=== PATIENT | female | born 1980 | race Caucasian/White ===

== ENCOUNTER 2018-07-02 18:00 | Emergency (ER) | payer MEDICAID ==
[~2018-07-02] VITALS: Ht 167.6 cm; Wt 85.0 kg
[2018-07-02 19:59] LABS: BASOPHILS % (AUTO) 1.8 % (0.0-2.0); EOSINOPHILS % (AUTO) 4.2 % (1.0-6.0); HEMATOCRIT 39.4 % (36-46); HEMOGLOBIN 13.3 g/dL (12.0-16.0); LYMPHOCYTES # (AUTO) 2.2 K/uL (1.0-4.8); LYMPHOCYTES % (AUTO) 30.5 % (22.0-44.0); MEAN CORPUSCULAR HEMOGLOBIN 30.8 pg (26.0-34.0); MEAN CORPUSCULAR HGB CONC 33.7 G/dL (31.0-37.0); MEAN CORPUSCULAR VOLUME 92 fL (80-100); MONOCYTES # (AUTO) 0.5 K/uL (0.1-1.0); MONOCYTES % (AUTO) 7.4 % (2.0-9.0); NEUTROPHILS # (AUTO) 4.1 K/uL (1.8-7.7); NEUTROPHILS % (AUTO) 56.1 % (40.0-70.0); PLATELET COUNT (AUTO) 239 K/uL (150-450); RED CELL DISTRIBUTION WIDTH 13.5 % (11.5-14.5)
[2018-07-02 20:10] LABS: ANION GAP 5 mmol/L (8-16); CARBON DIOXIDE 29 mmol/L (22-29); CHLORIDE 108 mmol/L (98-107); CREATININE 0.81 mg/dL (0.60-1.30); GLOMERULAR FILTR. RATE CALC > 60 mL/min (>60); GLUCOSE,RANDOM 102 mg/dL (70-110); POTASSIUM 4.2 mmol/L (3.5-5.1); SODIUM SERUM 142 mmol/L (136-145); UREA NITROGEN, BLOOD 22 mg/dL (7-18)
[2018-07-02 20:21] LABS: ALANINE AMINOTRANSFERASE 22 U/L (12-78); ALBUMIN 3.4 g/dL (3.4-5.0); ALKALINE PHOSPHATASE 64 U/L (46-116); ASPARTATE AMINOTRANSFERASE 17 U/L (15-37); BILIRUBIN,TOTAL 0.2 mg/dL (0.1-1.0); HCG,QUANTITATIVE < 1 mIU/mL (0-6); TOTAL PROTEIN, SERUM 6.5 g/dL (6.4-8.2)
[2018-07-02 20:40] VITALS: BP 131/74
[2018-07-02] MEDS ORDERED: MECLIZINE HCL 25 MG TABLET PO ONE (20:45)
[2018-07-02] MEDS ORDERED: DIAZEPAM 5 MG TABLET PO ONE (20:45)
[2018-07-02] MEDS ORDERED: ONDANSETRON HCL 4 MG TABLET PO ONE (20:45)
== END 2018-07-02 21:12 | disposition home or self-care (01) ==
LOC: EMS 18:01
DX: H81.11 Benign paroxysmal vertigo, right ear (principal); F17.210 Nicotine dependence, cigarettes, uncomplicated
CPT/HCPCS: 36415; 80053; 84702; 85025; 99284; Q0162

== ENCOUNTER 2019-03-06 00:13 | Emergency (ER) | payer MEDICAID | END 2019-03-06 03:00 | disposition left against medical advice (07) | LOC: EMS 00:13 | DX: Z00.8 Encounter for other general examination (principal); Z53.21 Procedure and treatment not carried out due to patient leaving prior to being seen by health care provider ==

== ENCOUNTER 2019-10-20 19:35 | Emergency (ER) | payer MEDICAID ==
[~2019-10-20] VITALS: Ht 167.6 cm; Wt 77.3 kg
[2019-10-20 21:26] VITALS: BP 138/92
[2019-10-20 22:27] LABS: BASOPHILS % (AUTO) 1.1 % (0.0-2.0); EOSINOPHILS % (AUTO) 11.6 % (1.0-6.0); HEMATOCRIT 37.8 % (36-46); HEMOGLOBIN 12.6 g/dL (12.0-16.0); LYMPHOCYTES # (AUTO) 1.7 K/uL (1.0-4.8); LYMPHOCYTES % (AUTO) 27.2 % (22.0-44.0); MEAN CORPUSCULAR HEMOGLOBIN 30.8 pg (26.0-34.0); MEAN CORPUSCULAR HGB CONC 33.4 G/dL (31.0-37.0); MEAN CORPUSCULAR VOLUME 92 fL (80-100); MONOCYTES # (AUTO) 0.5 K/uL (0.1-1.0); MONOCYTES % (AUTO) 8.5 % (2.0-9.0); NEUTROPHILS # (AUTO) 3.3 K/uL (1.8-7.7); NEUTROPHILS % (AUTO) 51.6 % (40.0-70.0); PLATELET COUNT (AUTO) 237 K/uL (150-450); RED CELL DISTRIBUTION WIDTH 13.6 % (11.5-14.5)
[2019-10-20 22:33] LABS: ANION GAP 7 mmol/L (8-16); CALCIUM, TOTAL 9.3 mg/dL (8.8-10.5); CARBON DIOXIDE 28 mmol/L (22-29); CHLORIDE 106 mmol/L (98-107); CREATININE 0.62 mg/dL (0.60-1.30); GLOMERULAR FILTR. RATE CALC > 60 mL/min (>60); GLUCOSE,RANDOM 102 mg/dL (70-110); POTASSIUM 3.9 mmol/L (3.5-5.1); SODIUM SERUM 141 mmol/L (136-145); UREA NITROGEN, BLOOD 16 mg/dL (7-18)
[2019-10-20 22:40] LABS: ALANINE AMINOTRANSFERASE 21 U/L (12-78); ALBUMIN 3.7 g/dL (3.4-5.0); ALKALINE PHOSPHATASE 58 U/L (46-116); ASPARTATE AMINOTRANSFERASE 14 U/L (15-37); BILIRUBIN,TOTAL 0.2 mg/dL (0.1-1.0); TOTAL PROTEIN, SERUM 6.9 g/dL (6.4-8.2)
[2019-10-20] MEDS ORDERED: ACETAMINOPHEN 325 MG TABLET PO ONE (23:00)
== END 2019-10-20 23:00 | disposition left against medical advice (07) ==
LOC: EMS 19:36
DX: F32.9 Major depressive disorder, single episode, unspecified (principal); F20.9 Schizophrenia, unspecified; J45.909 Unspecified asthma, uncomplicated; F17.210 Nicotine dependence, cigarettes, uncomplicated; F12.10 Cannabis abuse, uncomplicated
CPT/HCPCS: 80053; 85025; 99283; G0480

== ENCOUNTER 2020-03-30 20:01 | Inpatient (IN) | payer MEDICAID ==
[~2020-03-30] VITALS: Ht 170.2 cm; Wt 75.2 kg
[2020-03-30] MEDS ORDERED: HydrOXYzine PAMOATE 50 MG CAPSULE PO PRN (20:30)
[2020-03-30] MEDS ORDERED: OLANZapine 5 MG RAPDIS TABLET PO PRN (20:30)
[2020-03-30] MEDS ORDERED: LOPERAMIDE HCL 2 MG CAPSULE PO PRN (20:30)
[2020-03-30] MEDS ORDERED: PROMETHAZINE HCL 25 MG TABLET PO PRN (20:30)
[2020-03-30] MEDS ORDERED: GuaiFENesin/D-METHORPHAN [SUGAR-FREE] 200-20MG/10 ML SYRUP UDCUP PO PRN (20:30)
[2020-03-30] MEDS ORDERED: MAGNESIUM HYDROXIDE SUSPENSION 30 ML UDCUP PO PRN (20:30)
[2020-03-30] MEDS ORDERED: TUBERCULIN, PURIFIED PROTEIN DERIVATIVE 5 TU/0.1 ML SYRINGE ID ONE (20:30)
[2020-03-30] MEDS ORDERED: ACETAMINOPHEN 325 MG TABLET PO PRN (20:30)
[2020-03-30] MEDS ORDERED: PNEUMOCOCCAL VACCINE POLYVALENT 0.5 ML VIAL [PPSV23] IM ONE (20:30)
[2020-03-30] MEDS ORDERED: MAG HYDROX/AL HYDROX/SIMETH ES 30 ML SUSPENSION UDCUP PO PRN (20:30)
[2020-03-30] MEDS ORDERED: ZOLPIDEM TARTRATE 10 MG TABLET PO PRN (20:30)
[2020-03-30] MEDS ORDERED: OLANZapine 5 MG RAPDIS TABLET PO SCH (21:00)
[2020-03-30] MEDS: THIAMINE 100 MG TABLET PO SCH (21:38)
[2020-03-30 22:02] VITALS: BP 135/87
[2020-03-31 05:02] VITALS: BP 100/68
[2020-03-31 08:21] VITALS: BP 110/66
[2020-03-31] MEDS: FLUoxetine HCL 20 MG CAPSULE PO SCH (08:34)
[2020-03-31] MEDS: NALTREXONE HCL 50 MG TABLET PO SCH (08:34)
[2020-03-31] MEDS: MULTIVITAMINS WITH MINERALS, THERAPEUTIC TABLET PO SCH (08:34)
[2020-03-31] MEDS: THIAMINE 100 MG TABLET PO SCH ×2 (08:34→17:12)
[2020-03-31] MEDS: FOLIC ACID 1 MG TABLET PO SCH (08:34)
[2020-03-31] MEDS: LORazepam 2 MG TABLET PO PRN ×2 (08:37→17:12)
[2020-03-31 16:05] VITALS: BP 116/68
[2020-03-31] MEDS: OLANZapine 10 MG RAPDIS TABLET PO SCH (20:22)
[2020-03-31] MEDS: DIVALPROEX SODIUM 500 MG ER TABLET PO SCH (20:22)
[2020-04-01 00:45] VITALS: BP_SYST 109; BP_SYST 128; BP_DIAS 66; BP_DIAS 88
[2020-04-01 08:34] LABS: HEMOGLOBIN A1C 5.4 % (3.8-5.6)
[2020-04-01 08:54] LABS: FREE T4 (FREE THYROXINE) 1.35 ng/dL (0.76-1.46); THYROID STIMULATING HORMONE 0.35 uIU/mL (0.36-3.74)
[2020-04-01] MEDS: MULTIVITAMINS WITH MINERALS, THERAPEUTIC TABLET PO SCH (09:47)
[2020-04-01] MEDS: THIAMINE 100 MG TABLET PO SCH ×2 (09:47→16:49)
[2020-04-01] MEDS: NALTREXONE HCL 50 MG TABLET PO SCH (09:47)
[2020-04-01] MEDS: FLUoxetine HCL 20 MG CAPSULE PO SCH (09:47)
[2020-04-01] MEDS: LORazepam 2 MG TABLET PO PRN (09:48)
[2020-04-01] MEDS: FOLIC ACID 1 MG TABLET PO SCH (10:09)
[2020-04-01 16:13] VITALS: BP 114/60
[2020-04-01] MEDS: OLANZapine 10 MG RAPDIS TABLET PO SCH (20:12)
[2020-04-01] MEDS: DIVALPROEX SODIUM 500 MG ER TABLET PO SCH (20:12)
[2020-04-02 00:12] VITALS: BP 110/74
[2020-04-02 08:09] VITALS: BP 118/78
[2020-04-02] MEDS: FOLIC ACID 1 MG TABLET PO SCH (08:48)
[2020-04-02] MEDS: FLUoxetine HCL 20 MG CAPSULE PO SCH (08:48)
[2020-04-02] MEDS: MULTIVITAMINS WITH MINERALS, THERAPEUTIC TABLET PO SCH (08:48)
[2020-04-02] MEDS: THIAMINE 100 MG TABLET PO SCH ×2 (08:48→16:30)
[2020-04-02] MEDS: NALTREXONE HCL 50 MG TABLET PO SCH (08:48)
[2020-04-02] MEDS: LORazepam 2 MG TABLET PO PRN (13:39)
[2020-04-02 16:15] VITALS: BP 121/85
[2020-04-02] MEDS: OLANZapine 10 MG RAPDIS TABLET PO SCH (20:30)
[2020-04-02] MEDS: DIVALPROEX SODIUM 500 MG ER TABLET PO SCH (20:30)
[2020-04-03 00:49] VITALS: BP 117/82
[2020-04-03 08:12] VITALS: BP 122/69
[2020-04-03] MEDS: MULTIVITAMINS WITH MINERALS, THERAPEUTIC TABLET PO SCH (08:46)
[2020-04-03] MEDS: THIAMINE 100 MG TABLET PO SCH ×2 (08:46→16:02)
[2020-04-03] MEDS: FLUoxetine HCL 20 MG CAPSULE PO SCH (08:46)
[2020-04-03] MEDS: FOLIC ACID 1 MG TABLET PO SCH (08:46)
[2020-04-03] MEDS: NALTREXONE HCL 50 MG TABLET PO SCH (08:46)
[2020-04-03] MEDS: LORazepam 2 MG TABLET PO PRN ×2 (10:16→17:17)
[2020-04-03 16:05] VITALS: BP 110/69
[2020-04-03] MEDS: MIRTAZAPINE 15 MG TABLET PO SCH (20:24)
[2020-04-03] MEDS: DIVALPROEX SODIUM 500 MG ER TABLET PO SCH (20:24)
[2020-04-03] MEDS: OLANZapine 10 MG RAPDIS TABLET PO SCH (20:24)
[2020-04-04 05:37] VITALS: BP 106/72
[2020-04-04 08:07] VITALS: BP 122/71
[2020-04-04] MEDS: NALTREXONE HCL 50 MG TABLET PO SCH (08:11)
[2020-04-04] MEDS: THIAMINE 100 MG TABLET PO SCH ×2 (08:11→17:21)
[2020-04-04] MEDS: FOLIC ACID 1 MG TABLET PO SCH (08:11)
[2020-04-04] MEDS: FLUoxetine HCL 20 MG CAPSULE PO SCH (08:11)
[2020-04-04] MEDS: MULTIVITAMINS WITH MINERALS, THERAPEUTIC TABLET PO SCH (08:12)
[2020-04-04 08:57] LABS: HCG,QUANTITATIVE < 1 mIU/mL (0-6); VALPROIC ACID 80 mcg/mL (50-100)
[2020-04-04] MEDS: LORazepam 2 MG TABLET PO PRN ×2 (10:07→15:13)
[2020-04-04] MEDS ORDERED: MIRT-89 PO (14:03)
[2020-04-04] MEDS ORDERED: DIVA-80 PO (14:03)
[2020-04-04] MEDS ORDERED: NALT50TA PO (14:03)
[2020-04-04] MEDS ORDERED: FLUO-191 PO (14:03)
[2020-04-04] MEDS ORDERED: OLAN10TA22 PO (14:03)
[2020-04-04 16:13] VITALS: BP 112/63
[2020-04-04] MEDS: DIVALPROEX SODIUM 500 MG ER TABLET PO SCH (20:24)
[2020-04-04] MEDS: MIRTAZAPINE 15 MG TABLET PO SCH (20:24)
[2020-04-04] MEDS: OLANZapine 10 MG RAPDIS TABLET PO SCH (20:24)
[2020-04-05 03:40] VITALS: BP 110/68
[2020-04-05 07:56] VITALS: BP 114/73
[2020-04-05 08:00] LABS: ANION GAP 6 mmol/L (8-16); CALCIUM, TOTAL 8.5 mg/dL (8.8-10.5); CARBON DIOXIDE 29 mmol/L (22-29); CHLORIDE 105 mmol/L (98-107); CREATININE 0.68 mg/dL (0.60-1.30); GLOMERULAR FILTR. RATE CALC > 60 mL/min (>60); GLUCOSE,RANDOM 86 mg/dL (70-110); POTASSIUM 4.4 mmol/L (3.5-5.1); SODIUM SERUM 140 mmol/L (136-145); UREA NITROGEN, BLOOD 13 mg/dL (7-18)
[2020-04-05] MEDS: NALTREXONE HCL 50 MG TABLET PO SCH (08:05)
[2020-04-05] MEDS: FOLIC ACID 1 MG TABLET PO SCH (08:06)
[2020-04-05] MEDS: THIAMINE 100 MG TABLET PO SCH (08:06)
[2020-04-05] MEDS: MULTIVITAMINS WITH MINERALS, THERAPEUTIC TABLET PO SCH (08:09)
[2020-04-05] MEDS ORDERED: FLUoxetine HCL 20 MG CAPSULE PO SCH (09:00)
[2020-04-05] MEDS ORDERED: PYRIDOXINE HCL 50 MG TABLET PO SCH (09:00)
[2020-04-05] MEDS ORDERED: ISONIAZID 300 MG TABLET PO SCH (09:00)
[2020-04-05] MEDS ORDERED: [UNRECOGNIZED DRUG - CODE] PO (09:03)
[2020-04-05] MEDS ORDERED: ISON300 PO ×2 (09:04→09:05)
[2020-04-05] MEDS ORDERED: PYRI50CA PO (09:06)
== END 2020-04-05 14:00 | disposition home or self-care (01) | DRG 885 ==
LOC: B3A 20:26
PROVIDERS: ADMIT Psychiatry & Neurology Psychiatry; ATTEND Psychiatry & Neurology Psychiatry
DX: F25.9 Schizoaffective disorder, unspecified (principal); R45.851 Suicidal ideations; J45.909 Unspecified asthma, uncomplicated; F17.210 Nicotine dependence, cigarettes, uncomplicated; Z91.19 Patient's noncompliance with other medical treatment and regimen
CPT/HCPCS: 83036; 84439; 84443; 86592; 90732; 36415-L1; 36415-TC; 71046; 71046-TC; 80061-TC

== ENCOUNTER 2020-10-02 18:26 | Inpatient (IN) | payer MEDICAID ==
[~2020-10-02] VITALS: Ht 170.2 cm; Wt 82.1 kg
[~2020-10-02 18:26] MED LIST: DIVA-80 PO; FLUO-191 PO; ISON300 PO; MIRT-89 PO; NALT50TA PO; OLAN10TA22 PO; PYRI50CA PO
[2020-10-02] MEDS ORDERED: HALOPERIDOL 5 MG TABLET PO ONE (20:00)
[2020-10-02] MEDS ORDERED: LORazepam 1 MG TABLET PO ONE (20:00)
[2020-10-02 20:28] LABS: AMPHET/METH SCREEN,URINE NEGATIVE (NEGATIVE); BARBITURATE SCREEN, URINE NEGATIVE (NEGATIVE); BENZODIAZEPINES SCREEN,URINE NEGATIVE (NEGATIVE); CANNABINOID SCREEN,URINE POSITIVE (NEGATIVE); COCAINE SCREEN,URINE NEGATIVE (NEGATIVE); METHADONE SCREEN, URINE NEGATIVE (NEGATIVE); OPIATE SCREEN,URINE NEGATIVE (NEGATIVE); PHENCYCLIDINE SCREEN,URINE NEGATIVE (NEGATIVE)
[2020-10-02 20:42] LABS: COVID AG,FIA SOURCE NASOPHARYNGEAL
[2020-10-02 20:51] LABS: BASOPHILS % (AUTO) 1.1 % (0.0-2.0); EOSINOPHILS % (AUTO) 5.8 % (1.0-6.0); HEMOGLOBIN 12.4 g/dL (12.0-16.0); LYMPHOCYTES # (AUTO) 2.6 K/uL (1.0-4.8); LYMPHOCYTES % (AUTO) 43.4 % (22.0-44.0); MEAN CORPUSCULAR HGB CONC 33.5 G/dL (31.0-37.0); MEAN CORPUSCULAR VOLUME 93 fL (80-100); MONOCYTES # (AUTO) 0.5 K/uL (0.1-1.0); MONOCYTES % (AUTO) 8.8 % (2.0-9.0); NEUTROPHILS # (AUTO) 2.5 K/uL (1.8-7.7); NEUTROPHILS % (AUTO) 40.9 % (40.0-70.0); PLATELET COUNT (AUTO) 233 K/uL (150-450); RED CELL DISTRIBUTION WIDTH 14.1 % (11.5-14.5)
[2020-10-02] MEDS ORDERED: OLANZapine 5 MG RAPDIS TABLET PO PRN (21:00)
[2020-10-02] MEDS ORDERED: ZOLPIDEM TARTRATE 10 MG TABLET PO PRN (21:00)
[2020-10-02 21:07] LABS: ANION GAP 2 mmol/L (8-16); CALCIUM, TOTAL 8.2 mg/dL (8.8-10.5); CARBON DIOXIDE 24 mmol/L (22-29); CHLORIDE 106 mmol/L (98-107); CREATININE 0.58 mg/dL (0.60-1.30); GLOMERULAR FILTR. RATE CALC > 60 mL/min (>60); GLUCOSE,RANDOM 109 mg/dL (70-110); POTASSIUM 3.5 mmol/L (3.5-5.1); SODIUM SERUM 132 mmol/L (136-145); UREA NITROGEN, BLOOD 10 mg/dL (7-18)
[2020-10-02 21:13] LABS: ALANINE AMINOTRANSFERASE 25 U/L (12-78); ALBUMIN 2.9 g/dL (3.4-5.0); ALKALINE PHOSPHATASE 65 U/L (46-116); ASPARTATE AMINOTRANSFERASE 14 U/L (15-37); BILIRUBIN,TOTAL 0.1 mg/dL (0.1-1.0); TOTAL PROTEIN, SERUM 6.1 g/dL (6.4-8.2)
[2020-10-02 21:16] LABS: HCG,QUANTITATIVE 1 mIU/mL (0-6)
[2020-10-02 21:21] LABS: VALPROIC ACID < 3 mcg/mL (50-100)
[2020-10-03 00:56] VITALS: BP 144/95
[2020-10-03] MEDS ORDERED: PNEUMOCOCCAL VACCINE POLYVALENT 0.5 ML VIAL [PPSV23] IM ONE (01:15)
[2020-10-03] MEDS ORDERED: INFLUENZA VIRUS VACCINE QVS 2020-21 (6MO+)/PF 60 MCG/0.5 ML SYRINGE IM ONE (01:15)
[2020-10-03] MEDS: LORazepam 2 MG TABLET PO PRN (08:17)
[2020-10-03 08:25] VITALS: BP 105/65
[2020-10-03 09:45] LABS: CHOL/HDL RATIO 3.5 (3.9-5.7)
[2020-10-03] MEDS ORDERED: HydrOXYzine PAMOATE 50 MG CAPSULE PO PRN (15:00)
[2020-10-03] MEDS ORDERED: MAGNESIUM HYDROXIDE SUSPENSION 30 ML UDCUP PO PRN (15:00)
[2020-10-03] MEDS ORDERED: LOPERAMIDE HCL 2 MG CAPSULE PO PRN (15:00)
[2020-10-03] MEDS ORDERED: ACETAMINOPHEN 325 MG TABLET PO PRN (15:00)
[2020-10-03] MEDS ORDERED: GuaiFENesin/D-METHORPHAN [SUGAR-FREE] 200-20MG/10 ML SYRUP UDCUP PO PRN (15:00)
[2020-10-03] MEDS ORDERED: PROMETHAZINE HCL 25 MG TABLET PO PRN (15:00)
[2020-10-03] MEDS ORDERED: MAG HYDROX/AL HYDROX/SIMETH ES 30 ML SUSPENSION UDCUP PO PRN (15:00)
[2020-10-03 16:01] VITALS: BP 138/82
[2020-10-03] MEDS: THIAMINE 100 MG TABLET PO SCH (16:31)
[2020-10-03] MEDS: MIRTAZAPINE 15 MG TABLET PO SCH (20:05)
[2020-10-03] MEDS: MELATONIN 5 MG TABLET PO SCH (20:06)
[2020-10-03] MEDS ORDERED: OLANZapine 5 MG RAPDIS TABLET PO SCH (21:00)
[2020-10-04 05:31] VITALS: BP 131/98
[2020-10-04] MEDS: MULTIVITAMINS WITH MINERALS, THERAPEUTIC TABLET PO SCH (08:07)
[2020-10-04] MEDS: THIAMINE 100 MG TABLET PO SCH ×2 (08:07→17:02)
[2020-10-04] MEDS: FLUoxetine HCL 20 MG CAPSULE PO SCH (08:07)
[2020-10-04] MEDS: OMEGA-3/DHA/EPA/FISH OIL 1,000 MG CAPSULE PO SCH (08:07)
[2020-10-04] MEDS: NALTREXONE HCL 50 MG TABLET PO SCH (08:07)
[2020-10-04] MEDS: FOLIC ACID 1 MG TABLET PO SCH (08:07)
[2020-10-04 08:11] VITALS: BP 111/60
[2020-10-04] MEDS: LORazepam 2 MG TABLET PO PRN (12:16)
[2020-10-04 16:22] VITALS: BP 119/67
[2020-10-04] MEDS: OLANZapine 10 MG RAPDIS TABLET PO SCH (20:12)
[2020-10-04] MEDS: MELATONIN 5 MG TABLET PO SCH (20:12)
[2020-10-04] MEDS: MIRTAZAPINE 15 MG TABLET PO SCH (20:12)
[2020-10-05 06:43] VITALS: BP 118/69
[2020-10-05] MEDS: NALTREXONE HCL 50 MG TABLET PO SCH (08:09)
[2020-10-05] MEDS: MULTIVITAMINS WITH MINERALS, THERAPEUTIC TABLET PO SCH (08:09)
[2020-10-05] MEDS: FLUoxetine HCL 20 MG CAPSULE PO SCH (08:09)
[2020-10-05] MEDS: THIAMINE 100 MG TABLET PO SCH ×2 (08:09→16:16)
[2020-10-05] MEDS: FOLIC ACID 1 MG TABLET PO SCH (08:09)
[2020-10-05] MEDS: OMEGA-3/DHA/EPA/FISH OIL 1,000 MG CAPSULE PO SCH (08:09)
[2020-10-05 08:40] LABS: ANION GAP 7 mmol/L (8-16); CALCIUM, TOTAL 8.9 mg/dL (8.8-10.5); CARBON DIOXIDE 28 mmol/L (22-29); CHLORIDE 105 mmol/L (98-107); CREATININE 0.53 mg/dL (0.60-1.30); GLOMERULAR FILTR. RATE CALC > 60 mL/min (>60); GLUCOSE,RANDOM 90 mg/dL (70-110); POTASSIUM 4.2 mmol/L (3.5-5.1); SODIUM SERUM 140 mmol/L (136-145); UREA NITROGEN, BLOOD 14 mg/dL (7-18)
[2020-10-05 08:49] VITALS: BP 113/66
[2020-10-05] MEDS: LORazepam 2 MG TABLET PO PRN (13:29)
[2020-10-05 16:26] VITALS: BP 113/62
[2020-10-05] MEDS: MELATONIN 5 MG TABLET PO SCH (20:20)
[2020-10-05] MEDS: MIRTAZAPINE 15 MG TABLET PO SCH (20:20)
[2020-10-05] MEDS: OLANZapine 10 MG RAPDIS TABLET PO SCH (20:20)
[2020-10-06 06:38] VITALS: BP 125/75
[2020-10-06] MEDS: MULTIVITAMINS WITH MINERALS, THERAPEUTIC TABLET PO SCH (08:06)
[2020-10-06] MEDS: NALTREXONE HCL 50 MG TABLET PO SCH (08:06)
[2020-10-06] MEDS: THIAMINE 100 MG TABLET PO SCH ×2 (08:06→16:01)
[2020-10-06] MEDS: FLUoxetine HCL 20 MG CAPSULE PO SCH (08:06)
[2020-10-06] MEDS: LORazepam 2 MG TABLET PO PRN ×2 (08:06→17:46)
[2020-10-06] MEDS: FOLIC ACID 1 MG TABLET PO SCH (08:06)
[2020-10-06] MEDS: OMEGA-3/DHA/EPA/FISH OIL 1,000 MG CAPSULE PO SCH (08:06)
[2020-10-06 08:23] VITALS: BP 111/86
[2020-10-06 16:05] VITALS: BP 124/79
[2020-10-06] MEDS: OLANZapine 10 MG RAPDIS TABLET PO SCH (20:04)
[2020-10-06] MEDS: MIRTAZAPINE 15 MG TABLET PO SCH (20:04)
[2020-10-06] MEDS: MELATONIN 5 MG TABLET PO SCH (20:04)
[2020-10-07 00:11] VITALS: BP 114/71
[2020-10-07 08:08] VITALS: BP 120/74
[2020-10-07] MEDS: THIAMINE 100 MG TABLET PO SCH ×2 (08:16→16:10)
[2020-10-07] MEDS: FLUoxetine HCL 20 MG CAPSULE PO SCH (08:16)
[2020-10-07] MEDS: OMEGA-3/DHA/EPA/FISH OIL 1,000 MG CAPSULE PO SCH (08:16)
[2020-10-07] MEDS: NALTREXONE HCL 50 MG TABLET PO SCH (08:16)
[2020-10-07] MEDS: FOLIC ACID 1 MG TABLET PO SCH (08:16)
[2020-10-07] MEDS: LORazepam 2 MG TABLET PO PRN ×2 (08:16→16:10)
[2020-10-07] MEDS: MULTIVITAMINS WITH MINERALS, THERAPEUTIC TABLET PO SCH (08:16)
[2020-10-07 16:05] VITALS: BP 120/84
[2020-10-07] MEDS: MIRTAZAPINE 15 MG TABLET PO SCH (20:03)
[2020-10-07] MEDS: MELATONIN 5 MG TABLET PO SCH (20:03)
[2020-10-07] MEDS: OLANZapine 10 MG RAPDIS TABLET PO SCH (20:04)
[2020-10-08 05:14] VITALS: BP 133/95
[2020-10-08] MEDS ORDERED: FLUO-191 PO (06:20)
[2020-10-08] MEDS ORDERED: NALT50TA6 PO (06:21)
[2020-10-08] MEDS ORDERED: MIRT-89 PO (06:21)
[2020-10-08] MEDS ORDERED: MELA5TAB3 PO (06:22)
[2020-10-08] MEDS ORDERED: OLAN10TA3 PO (06:22)
[2020-10-08 08:35] LABS: COVID AG,FIA SOURCE NASOPHARYNGEAL
== END 2020-10-08 08:00 | disposition home or self-care (01) | DRG 750 ==
LOC: EMS 18:26 → B2S 21:00
PROVIDERS: ADMIT Psychiatry & Neurology Psychiatry; ATTEND Psychiatry & Neurology Psychiatry
DX: F20.0 Paranoid schizophrenia (principal); R45.851 Suicidal ideations; Z91.14 Patient's other noncompliance with medication regimen; F32.9 Major depressive disorder, single episode, unspecified; Z91.5 Personal history of self-harm; J44.9 Chronic obstructive pulmonary disease, unspecified; F17.200 Nicotine dependence, unspecified, uncomplicated; Z88.8 Allergy status to other drugs, medicaments and biological substances; E46 Unspecified protein-calorie malnutrition; Z68.28 Body mass index [BMI] 28.0-28.9, adult; F41.1 Generalized anxiety disorder; Z59.0 Homelessness; Z20.822 Contact with and (suspected) exposure to COVID-19; F12.10 Cannabis abuse, uncomplicated
CPT/HCPCS: 87426; 90732; 99285; A9575; G0480